=== PATIENT | female | born 1945 | race Caucasian/White ===

== ENCOUNTER 2021-02-15 10:26 | Outpatient (REF) | payer MEDICARE, SELFPAY ==
[2021-02-15 11:45] LABS: Alanine Aminotransferase 22 U/L (0-31); Albumin Level 4.2 g/dL (3.5-5.0); Alkaline Phosphatase 71 U/L (39-117); Aspartate Amino Transferase 17 U/L (5-31); Bilirubin Direct 0.2 mg/dL (0.0-0.5); Bilirubin Total 0.5 mg/dL (0.0-1.0); Cholesterol 222 mg/dL; HDL Cholesterol 78 mg/dL; LDL Cholesterol Calculated 122 mg/dl; Total Protein 6.5 g/dL (6.5-8.0); Triglycerides 112 mg/dL
[2021-02-15 12:24] LABS: Reflex LDLD? No
== END 2021-02-15 10:27 | disposition home or self-care (01) ==
LOC: HO.LNP 10:26
PROVIDERS: Visit Provider Internal Medicine
DX: E78.00 Pure hypercholesterolemia, unspecified (principal); E55.9 Vitamin D deficiency, unspecified
CPT/HCPCS: 80061; 80076

== ENCOUNTER 2021-02-25 10:21 | Outpatient (REF) | payer MEDICARE, SELFPAY ==
[2021-02-25 10:25] LABS: MANUAL DIFF FLAG NO
[2021-02-25 10:39] LABS: Basophils Percent Auto 0.7 % (0-2); Eosinophils Absolute Auto 0.3 X10*3/uL (0.0-0.4); Eosinophils Percent Auto 5.9 % (0-4); Hematocrit 39.6 % (37-47); Hemoglobin 12.9 g/dl (12.0-16.0); Imm Gran Abs Auto 0.01 X10*3/uL (0.00-0.03); Imm Gran Pct Auto 0.2 % (0.0-0.4); Lymphocytes Absolute Auto 1.7 X10*3/uL (1.2-4.9); Lymphocytes Percent Auto 28.7 % (20-40); Mean Corpuscular HGB Conc 32.6 g/dl (31.0-35.0); Mean Corpuscular Hemoglobin 29.7 pg (27.0-33.0); Mean Platelet Volume 9.5 fL (9.4-12.3); Monocytes Absolute Auto 0.5 X10*3/uL (0.1-1.2); Monocytes Percent Auto 8.6 % (2-11); Neutrophils Absolute Auto 3.3 X10*3/uL (2.0-8.3); Neutrophils Percent Auto 55.9 % (45-73); Platelet Count 221 X10*3/uL (160-400); Red Blood Count 4.35 X10*6/uL (4.20-5.50); Red Cell Distribution Width 12.7 % (11.0-16.0); White Blood Count 5.8 X10*3/uL (4.8-10.8)
[2021-02-25 10:52] LABS: Glucose Urine UA NEG (NEG); Leukocyte Esterase Urine 1+ (NEG); Nitrite Urine NEG (NEG); Specific Gravity - Urine >= 1.030 (1.005-1.025); Urine Blood NEG (NEG); Urine Ketones NEG (NEG); Urine Protein TRACE MG/DL (NEG-TRACE)
[2021-02-25 10:54] LABS: Appearance Urine HAZY; Color Urine YELLOW
[2021-02-25 11:23] LABS: Bacteria Urine 3+ /LPF; Calcium Carbonate Crystals Ur 1+ /LPF; RBC Urine 0-2 /HPF (0); Squamous Epithelial Cell Urine 1+ /LPF
[2021-02-25 11:49] LABS: Alanine Aminotransferase 15 U/L (0-31); Alkaline Phosphatase 71 U/L (39-117); Anion Gap 13 (12-20); Aspartate Amino Transferase 14 U/L (5-31); Bilirubin Total 0.5 mg/dL (0.0-1.0); Blood Urea Nitrogen 18 mg/dL (9-16); Calcium 8.6 mg/dL (8.4-10.2); Carbon Dioxide 24 mmol/L (22-29); Chloride 109 mmol/L (96-108); Estimated Glomerular Filt Rate > 60; Glucose Random 97 mg/dL (60-115); Sodium 142 mmol/L (135-145); Total Protein 6.1 g/dL (6.5-8.0)
[2021-03-02 12:42] LABS: VITAMIN D (1,25 OH) D3 73 pg/mL; Vit D (1,25-Dihydroxy) Total 73 pg/mL (18-72); Vitamin D (1,25 OH) D2 <8 pg/mL
== END 2021-02-25 10:22 | disposition home or self-care (01) ==
LOC: HO.LNP 10:21
PROVIDERS: Visit Provider Internal Medicine
DX: E78.00 Pure hypercholesterolemia, unspecified (principal); E55.9 Vitamin D deficiency, unspecified; M35.2 Behcet's disease
CPT/HCPCS: 80053; 81001; 82652; 85025

== ENCOUNTER 2021-05-05 15:11 | Outpatient (REF) | payer MEDICARE, SELFPAY ==
--- NOTE | ~2021-05-05 | US_ITS ---
EXAMINATION: US VENOUS ULTRASOUND WITH DOPPLER LOWER EXTREMITY, RIGHT CLINICAL INFORMATION: Swelling and pain COMPARISON: None TECHNIQUE: Ultrasound of the deep veins is performed from the hip to the calf with compression sonography and color and pulse Doppler assessment. Spectral analysis with color-flow imaging is performed. FINDINGS: There is normal venous compression and respiratory variation and augmented flow. The visualized common femoral vein, superficial femoral vein, profunda femoral vein, popliteal vein, and the trifurcation region shows no evidence of deep venous thrombosis. There is no significant popliteal fossa cyst. If the patient's symptoms persist, followup ultrasound in 5 days 7 days might be of value to exclude proximal propagation from a non-visualized calf vein. US/US venous duplex LE RT IMPRESSION: No DVT demonstrated in the right lower extremity.
== END 2021-05-05 15:12 | disposition home or self-care (01) ==
LOC: HO.HMGCX 15:11
PROVIDERS: PCP Internal Medicine; Visit Provider Internal Medicine
DX: R60.0 Localized edema (principal)
CPT/HCPCS: 93971

== ENCOUNTER 2022-03-09 10:38 | Outpatient (REF) | payer MEDICARE, SELFPAY ==
[2022-03-09 10:43] LABS: MANUAL DIFF FLAG NO
[2022-03-09 10:56] LABS: Appearance Urine CLEAR; Color Urine YELLOW; Glucose Urine UA NEG (NEG); Leukocyte Esterase Urine TRACE (NEG); Nitrite Urine NEG (NEG); PH 5.5 (5.0-8.0); Specific Gravity - Urine >= 1.030 (1.005-1.025); Urine Blood NEG (NEG); Urine Ketones NEG (NEG); Urine Protein NEG (NEG-TRACE)
[2022-03-09 10:57] LABS: Basophils Absolute Auto 0.1 X10*3/uL (0.0-0.2); Basophils Percent Auto 0.9 % (0-2); Eosinophils Absolute Auto 0.2 X10*3/uL (0.0-0.4); Eosinophils Percent Auto 2.6 % (0-4); Hemoglobin 13.4 g/dl (12.0-16.0); Imm Gran Abs Auto 0.02 X10*3/uL (0.00-0.03); Imm Gran Pct Auto 0.3 % (0.0-0.4); Lymphocytes Absolute Auto 1.8 X10*3/uL (1.2-4.9); Mean Corpuscular HGB Conc 32.7 g/dl (31.0-35.0); Mean Corpuscular Volume 88.7 fL (80.0-98.0); Mean Platelet Volume 9.2 fL (9.4-12.3); Monocytes Absolute Auto 0.5 X10*3/uL (0.1-1.2); Monocytes Percent Auto 9.4 % (2-11); Neutrophils Absolute Auto 3.2 x10*3/uL (2.0-8.3); Neutrophils Percent Auto 54.8 % (45-73); Platelet Count 337 X10*3/uL (160-400); Red Blood Count 4.62 X10*6/uL (4.20-5.50); Red Cell Distribution Width 12.2 % (11.0-16.0); White Blood Count 5.8 X10*3/uL (4.8-10.8)
[2022-03-09 11:18] LABS: Bacteria Urine TRACE /LPF; RBC Urine 0 /HPF (0); Squamous Epithelial Cell Urine TRACE /LPF
[2022-03-09 11:23] LABS: Alanine Aminotransferase 14 U/L (0-31); Albumin Level 4.1 g/dL (3.5-5.0); Alkaline Phosphatase 71 U/L (39-117); Anion Gap 13 (12-20); Aspartate Amino Transferase 14 U/L (5-31); Bilirubin Total 0.4 mg/dL (0.0-1.0); Blood Urea Nitrogen 19 mg/dL (9-16); Calcium 9.1 mg/dL (8.4-10.2); Carbon Dioxide 25 mmol/L (22-29); Chloride 109 mmol/L (96-108); Cholesterol 241 mg/dL; Estimated Glomerular Filt Rate > 60; Glucose Fasting 107 mg/dL (60-99); HDL Cholesterol 67 mg/dL; LDL Cholesterol Calculated 148 mg/dl; Potassium 4.1 mmol/L (3.3-5.1); Sodium 143 mmol/L (135-145); Total Protein 6.3 g/dL (6.5-8.0); Triglycerides 133 mg/dL
[2022-03-09 11:46] LABS: Vitamin D 25-OH Total 38.6 ng/mL (>30)
== END 2022-03-09 10:39 | disposition home or self-care (01) ==
LOC: HO.LNP 10:38
PROVIDERS: Visit Provider Internal Medicine
DX: E78.00 Pure hypercholesterolemia, unspecified (principal); E55.9 Vitamin D deficiency, unspecified
CPT/HCPCS: 80053; 80061; 81001; 82306; 85025; 87086

== ENCOUNTER 2022-07-27 14:13 | Outpatient (REF) | payer MEDICARE, SELFPAY ==
--- NOTE | ~2022-07-27 | MR_ITS ---
MRI OF THE BRAIN WITH AND WITHOUT IV CONTRAST INDICATION: Migraine. COMPARISON: None available. TECHNIQUE: Multiplanar multisequence MR imaging of the brain was obtained without and following the administration of 8 mL of Gadavist without complication. FINDINGS: There is no pathologic intracranial enhancement. On the axial postcontrast series, there is vascular pulsation artifact within the brainstem which is not confirmed on the remaining series. There is global cerebral volume loss and there is mild chronic microangiopathy. Cavum septum pellucidum at vergae. There is no hydrocephalus, extra-axial surface collection, or herniation. The major flow voids at the skull base are preserved. There is no acute infarct on diffusion-weighted imaging. There is no intracranial hemorrhage on the gradient recalled echo acquisition. The midline structures are normal. The cerebellar tonsils are normally positioned. The cerebellum and brainstem are normal. The craniocervical junction is normal. Osseous marrow signal intensity is homogenous. The visualized soft tissues are unremarkable. MR/MR head/brain wo/w con IMPRESSION: - No acute intracranial findings. No pathologic enhancement intracranially accounting for artifact. - There is global cerebral volume loss and there is mild chronic microangiopathy.
== END 2022-07-27 14:14 | disposition home or self-care (01) ==
LOC: HO.MRI 14:13
PROVIDERS: Visit Provider Internal Medicine
DX: G43.009 Migraine without aura, not intractable, without status migrainosus (principal)
CPT/HCPCS: 70553; A9585

== ENCOUNTER 2022-09-25 07:58 | Day surgery (SDC) | payer MEDICARE, SELFPAY ==
[2022-09-19 16:18] VITALS: BMI 28.3
--- NOTE | 2022-09-22 08:13 | MHC.SHP ---
Pre-Procedural Eval Section A Date of Service: 09/22/22 The patient is an INPATIENT: No Changes since office visit: No Cold of Flu in the past 2 weeks, No New Medical Problems, No Changes in Medication and No Patient answered all questions The History & Physical has been completed within 30 days and I have reviewed it.: Yes Section B Chief Complaint: Age-related nuclear cataract, right eye Allergies: Allergies Allergy/AdvReac Type Severity Reaction Status Date / Time prednisone Allergy Unknown chest pain Verified 09/19/22 15:31 Plan Diagnosis/Plan: Unchanged I have reviewed the history and physical and performed a pertinent physical examination on my patient. No changes have occurred unless specified. Time Spent With Patient Time: Total time managing care of this patient today ____ minutes.
[2022-09-25 08:43] VITALS: BP 167/83; PULSE 77; RESP 18; TEMP 36.6; O2SAT 98
[2022-09-25] MEDS: Cyclopentolate 1 % Ophth Sol 2 ML DRPBTL 1 DROP EYE-RIGHT ×3 (08:56→08:57)
[2022-09-25] MEDS: Tropicamide 1 % Ophth Sol 3 ML BTL 1 DROP EYE-RIGHT ×3 (08:56→08:57)
[2022-09-25] MEDS: Tetracaine HCl/PF 0.5% Oph Sol 4 ML DROPS 1 DROP EYE-RIGHT (08:56)
[2022-09-25] MEDS: Phenylephrine HCL 2.5% Oph SoL 2 ML BOTTLE 1 DROP EYE-RIGHT ×3 (08:57→08:58)
[2022-09-25] MEDS: Ketorolac Tromethamine 0.5% Op 5 ML DROPS 1 DROP EYE-RIGHT ×3 (08:57)
--- NOTE | 2022-09-25 09:55 | HO.PNOPHT ---
Ophthalmology Procedure Procedure Date of Service: 09/25/22 Ophthalmology Viscoelastic: Healaudrey Duet Dual Pack Pro Ophthalmology Lenses: TECNIS [id number] (21.5) Procedure Notes: PREOPERATIVE DIAGNOSIS: Decreased visual acuity right eye secondary to cataract POSTOPERATIVE DIAGNOSIS: Same PROCEDURE: Right cataract extraction with intraocular lens insertion SURGEON: Jean Carlos Llamas M.D. ANESTHESIA: Topical/MAC ESTIMATED BLOOD LOSS: None COMPLICATIONS: None After obtaining informed consent, the patient was brought to the operating room suite and placed in the supine position. After adequate sedation per anesthesia, topical drops of Tetracaine were given to the right eye. The eye was then prepped and draped in the usual sterile fashion. The operating room microscope was then positioned over the operative eye and a lid speculum placed. A paracentesis was created. Viscoelastic was then instilled into the anterior chamber. A three plane incision was then created temporally, utilizing a 2.85 mm keratome. Capsulotomy forceps were then utilized to create a circular tear capsulotomy. Hydrodissection and hydrodelineation were carried out until adequate mobilization of the nucleus occurred. Phacoemulsification was then utilized to remove the dense central nucleus followed by removal of the cortical material utilizing the automated aspiration irrigation unit. Viscoelastic was instilled into the posterior capsular bag followed by placement of a posterior chamber intraocular lens without difficulty. The residual Viscoelastic was then removed utilizing the automated IA machine. The wound was checked and found to be watertight. The patient tolerated the procedure well and the lid speculum was removed. Intracameral injection of Vigamox 0.1 mL followed by a subtenon injection of Kenalog-40 0.2 mL were administered. The patient will be seen in the a.m.
[2022-09-25 10:16] VITALS: BP 167/73; PULSE 82; RESP 12; TEMP 37.1; O2SAT 99
[2022-09-25 10:21] VITALS: BP 176/73; PULSE 76; RESP 14; TEMP 37.1; O2SAT 96
== END 2022-09-25 10:31 | disposition home or self-care (01) ==
PROVIDERS: PCP Internal Medicine; Visit Provider Ophthalmology
PROC: (CPT 66985; principal; 2022-09-25 10:00)
DX: H25.11 Age-related nuclear cataract, right eye (principal); H54.7 Unspecified visual loss; E78.00 Pure hypercholesterolemia, unspecified; Z88.8 Allergy status to other drugs, medicaments and biological substances; Z79.899 Other long term (current) drug therapy
CPT/HCPCS: 66984; J3301; V2632

== ENCOUNTER 2022-10-09 07:54 | Day surgery (SDC) | payer MEDICARE, SELFPAY ==
[2022-09-19 16:14] VITALS: BMI 28.3
--- NOTE | 2022-10-06 10:11 | MHC.SHP ---
Pre-Procedural Eval Section A Date of Service: 10/06/22 The patient is an INPATIENT: No Changes since office visit: No Cold of Flu in the past 2 weeks, No New Medical Problems, No Changes in Medication and No Patient answered all questions The History & Physical has been completed within 30 days and I have reviewed it.: Yes Section B Chief Complaint: Age-related nuclear cataract, left eye Allergies: Allergies Allergy/AdvReac Type Severity Reaction Status Date / Time prednisone Allergy Unknown chest pain Verified 09/19/22 15:31 Plan Diagnosis/Plan: Unchanged I have reviewed the history and physical and performed a pertinent physical examination on my patient. No changes have occurred unless specified. Time Spent With Patient Time: Total time managing care of this patient today ____ minutes.
[2022-10-09 08:31] VITALS: BP 151/76; PULSE 79; RESP 15; TEMP 36.8; O2SAT 95
[2022-10-09] MEDS: Tetracaine HCl/PF 0.5% Oph Sol 4 ML DROPS 1 DROP EYE-LEFT (08:35)
[2022-10-09] MEDS: Cyclopentolate 1 % Ophth Sol 2 ML DRPBTL 1 DROP EYE-LEFT ×3 (08:37→08:49)
[2022-10-09] MEDS: Tropicamide 1 % Ophth Sol 3 ML BTL 1 DROP EYE-LEFT ×3 (08:39→08:51)
[2022-10-09] MEDS: Ketorolac Tromethamine 0.5% Op 5 ML DROPS 1 DROP EYE-LEFT ×3 (08:40→08:52)
[2022-10-09] MEDS: Phenylephrine HCL 2.5% Oph SoL 2 ML BOTTLE 1 DROP EYE-LEFT ×3 (08:42→08:54)
[2022-10-09] MEDS: Lactated Ringers 500 ML 20 ML IVCONT (08:49)
--- NOTE | 2022-10-09 09:06 | HO.ANESPROP2 ---
[facility] Past Medical History Medical History History of high cholesterol Hx of migraines PONV (postoperative nausea and vomiting) Surgical History Surgical History Hx of colonoscopy Hx of dilation and curettage History of Problems with Anesthesia: No Social History Social History Are you a primary health care sanitary technician to a significant other at home: No Do you presently have visiting nurse or other home services: No Patient Tobacco Use Status: Never used Tobacco Second Hand Smoke Exposure: No Use of substances other than those prescribed or required for medical reasons: No Have you been hit, kicked, punched, or otherwise hurt by someone within the past year? If so, by whom?: No Are you DNR?: No Advance Directives: No Advance Directives Information Provided: Yes Advance Directives on File: No Recently lost weight without trying: No Eating poorly because of decreased appetite: No Nutrition Risks: No Nutritional Risk Meds Allergies Allergy/AdvReac Type Severity Reaction Status Date / Time prednisone Allergy Unknown chest pain Verified 10/09/22 08:31 Active Medications: Current Medications Lactated Ringer's (Lr) 500 mls @ 20 mls/hr IVCONT .Q24H NELLIE Last Admin: 10/09/22 08:49 Dose: 20 mls/hr Povidone Iodine (Povidone Iodine 5 % Ophth Soln 30 Ml Bottle) 1 appl EYE-LEFT PREOP PRN PRN Reason: Pre-Op Surgical Implant Prophy Home Medications Medication Instructions Recorded Confirmed Last Taken Type cholecalciferol (vitamin D3) 10 10 mcg PO DAILY 09/19/22 09/19/22 Unknown History mcg (400 unit) chewable tablet (Vitamin D3) Exam Exam Date and Time: October 09, 2022905 Height,Weight and Vital Signs: Height 5 ft 5 in Weight 77.111 kg Last Vital Signs Temp 98.3 F 10/09/22 08:31 Pulse 79 10/09/22 08:31 Resp 15 10/09/22 08:31 BP 151/76 H 10/09/22 08:31 Pulse Ox 95 10/09/22 08:31 O2 Del Method 10/09/22 08:31 Airway Mallampati Class: II TM Dist: >3cm Neck ROM: Full Partial: Upper and Lower Loose/Missing/Broken Teeth: Yes and Lower Heart: RRR Lungs: CTA Assessment and Plan Assessment Anesthesia Assessment: Anesthesia Plan Discussed and Chart Reviewed Final Anesthetic Review History of Problems with Anesthesia: No NPO: Yes ASA Class: II Final Preanesthetic Review: Meds/Allgs Chart Reviewed, Consent Obtained/Reviewed and Anes Risks/Benef Reviewed Patient Risk: Low Procedure Risk: Low Anesthetic Plan Anesthetic Plan: MAC: Disposition: Standard PACU
--- NOTE | 2022-10-09 09:41 | HO.PNOPHT ---
Ophthalmology Procedure Procedure Date of Service: 10/09/22 Ophthalmology Viscoelastic: Healaudrey Cherryt Dual Pack Pro Ophthalmology Lenses: TECMAAYA [id number] (22) Procedure Notes: PREOPERATIVE DIAGNOSIS: Decreased visual acuity left eye secondary to cataract POSTOPERATIVE DIAGNOSIS: Same PROCEDURE: Left cataract extraction with intraocular lens insertion SURGEON: Jean Carlos Llamas M.D. ANESTHESIA: Topical/MAC ESTIMATED BLOOD LOSS: None COMPLICATIONS: None After obtaining informed consent, the patient was brought to the operation room suite and placed in the supine position. After adequate sedation per anesthesia, topical drops of Tetracaine were given to the left eye. The eye was then prepped and draped in the usual sterile fashion. The operating room microscope was then positioned over the operative eye and a lid speculum placed. A paracentesis was created. Viscoelastic was then instilled into the anterior chamber. A three plane incision was then created temporally, utilizing a 2.85 mm keratome. Capsulotomy forceps were then utilized to create a circular tear capsulotomy. Hydrodissection and hydrodelineation were carried out until adequate mobilization of the nucleus occurred. Phacoemulsification was then utilized to remove the dense central nucleus followed by removal of the cortical material utilizing the automated aspiration irrigation unit. Viscoat elastic was instilled into the posterior capsular bag followed by placement of a posterior chamber intraocular lens without difficulty. The residual Viscoat elastic was then removed utilizing the automated IA machine. The wound was check and found to be watertight. The patient tolerated the procedure well and the lid speculum was removed. Intracameral injection of Vigamox 0.1 mL followed by a subtenon injection of Kenalog-40 0.2 mL were administered. The patient will be seen in the a.m.
[2022-10-09 10:10] VITALS: BP 154/77; PULSE 68; RESP 49; TEMP 36.4; O2SAT 97
== END 2022-10-09 10:15 | disposition home or self-care (01) ==
PROVIDERS: PCP Internal Medicine; Visit Provider Ophthalmology
PROC: (CPT 66985; principal; 2022-10-09 10:00)
DX: H25.12 Age-related nuclear cataract, left eye (principal); H54.7 Unspecified visual loss; E78.00 Pure hypercholesterolemia, unspecified; Z79.899 Other long term (current) drug therapy; Z88.8 Allergy status to other drugs, medicaments and biological substances
CPT/HCPCS: 66984; J3301; V2632

== ENCOUNTER 2023-08-28 10:49 | Outpatient (REF) | payer MEDICARE, SELFPAY ==
[2023-08-28 10:52] LABS: MANUAL DIFF FLAG NO
[2023-08-28 11:42] LABS: Basophils Percent Auto 0.8 % (0-2); Eosinophils Absolute Auto 0.3 X10*3/uL (0.0-0.4); Eosinophils Percent Auto 5.3 % (0-4); Hematocrit 39.9 % (37.0-47.0); Hemoglobin 13.3 g/dl (12.0-16.0); Imm Gran Abs Auto 0.01 X10*3/uL (0.00-0.03); Imm Gran Pct Auto 0.2 % (0.0-0.4); Lymphocytes Absolute Auto 1.6 X10*3/uL (1.2-4.9); Lymphocytes Percent Auto 30.5 % (20-40); Mean Corpuscular HGB Conc 33.3 g/dl (31.0-35.0); Mean Corpuscular Hemoglobin 29.6 pg (27.0-33.0); Mean Corpuscular Volume 88.9 fL (80.0-98.0); Mean Platelet Volume 9.3 fL (9.4-12.3); Monocytes Absolute Auto 0.4 X10*3/uL (0.1-1.2); Monocytes Percent Auto 8.6 % (2-11); Neutrophils Absolute Auto 2.8 x10*3/uL (2.0-8.3); Neutrophils Percent Auto 54.6 % (45-73); Platelet Count 260 X10*3/uL (160-400); Red Blood Count 4.49 X10*6/uL (4.20-5.50); Red Cell Distribution Width 12.4 % (11.0-16.0); White Blood Count 5.1 X10*3/uL (4.8-10.8)
[2023-08-28 11:55] LABS: Appearance Urine Turbid; Color Urine Dark Yellow; Glucose Urine UA Negative (Negative); Leukocyte Esterase Urine Small (1+) (Negative); Nitrite Urine Negative (Negative); PH 5.5 (5.0-9.0); Specific Gravity - Urine 1.025 (1.005-1.025); UMIC TRIGGER UACC YES; Urine Blood Negative (Negative); Urine Ketones Trace mg/dL (Negative); Urine Protein Trace mg/dL (Neg-Trace)
[2023-08-28 12:00] LABS: Bacteria Urine None Seen (None Seen); Hyaline Casts Urine 0-2 /LPF (0-2); RBC Urine 0-2 /HPF (0-2); Squamous Epithelial Cell Urine >20 /HPF (0-2); UACC Culture Trigger YES
[2023-08-28 12:02] LABS: Alanine Aminotransferase 15 U/L (0-31); Albumin Level 4.1 g/dL (3.5-5.0); Alkaline Phosphatase 68 U/L (39-117); Anion Gap 16 (12-20); Aspartate Amino Transferase 17 U/L (5-31); Bilirubin Total 0.4 mg/dL (0.0-1.0); Blood Urea Nitrogen 20 mg/dL (9-16); Calcium 9.4 mg/dL (8.4-10.2); Carbon Dioxide 24 mmol/L (22-29); Chloride 106 mmol/L (96-108); Cholesterol 244 mg/dL (<200); Estimated Glomerular Filt Rate > 60; Glucose Fasting 107 mg/dL (60-99); HDL Cholesterol 77 mg/dL (>40); LDL Cholesterol Calculated 148 mg/dL (<100); Potassium 4.1 mmol/L (3.3-5.1); Sodium 142 mmol/L (135-145); Total Protein 6.6 g/dL (6.5-8.0); Triglycerides 96 mg/dL (<150)
== END 2023-08-28 10:50 | disposition home or self-care (01) ==
LOC: HO.LNP 10:49
PROVIDERS: Visit Provider Internal Medicine
DX: E78.00 Pure hypercholesterolemia, unspecified (principal)
CPT/HCPCS: 80053; 80061; 81001; 85025; 87086

== ENCOUNTER 2024-02-25 11:57 | Outpatient (REF) | payer MEDICARE, SELFPAY ==
[2024-02-25 12:46] VITALS: BP 134/66; PULSE 80; RESP 17; TEMP 36.4; O2SAT 96
[2024-02-25 13:39] VITALS: BMI 28.1
== END 2024-02-25 11:58 | disposition home or self-care (01) ==
LOC: HO.MS 11:57
PROVIDERS: PCP Internal Medicine; Visit Provider Ophthalmology
PROC: (CPT 66821; principal; 2024-02-25 14:30)
DX: H26.491 Other secondary cataract, right eye (principal)
CPT/HCPCS: 66821

== ENCOUNTER 2024-06-23 10:00 | Outpatient (RCR) | payer MEDICARE, SELFPAY | END 2024-07-11 10:53 | disposition home or self-care (01) | LOC: HO.PT 10:00 | PROVIDERS: PCP Internal Medicine; Visit Provider Physician Assistant | DX: M54.16 Radiculopathy, lumbar region (principal) | CPT/HCPCS: 97110; 97112; 97161 ==

== ENCOUNTER 2024-07-23 10:00 | Outpatient (RCR) | payer MEDICARE, SELFPAY | END 2024-08-22 09:59 | disposition home or self-care (01) | LOC: HO.PT 10:00 | PROVIDERS: PCP Internal Medicine; Visit Provider Internal Medicine | DX: R42 Dizziness and giddiness (principal) | CPT/HCPCS: 97112; 97161; 97535 ==

== ENCOUNTER 2024-09-30 10:54 | Outpatient (REF) | payer MEDICARE, SELFPAY ==
[2024-09-30 10:57] LABS: MANUAL DIFF FLAG NO
[2024-09-30 11:04] LABS: Basophils Absolute Auto 0.1 X10*3/uL (0.0-0.2); Basophils Percent Auto 1.1 % (0-2); Eosinophils Absolute Auto 0.3 X10*3/uL (0.0-0.4); Eosinophils Percent Auto 5.9 % (0-4); Hematocrit 41.4 % (37.0-47.0); Hemoglobin 13.7 g/dl (12.0-16.0); Imm Gran Abs Auto 0.01 X10*3/uL (0.00-0.03); Imm Gran Pct Auto 0.2 % (0.0-0.4); Lymphocytes Absolute Auto 1.6 X10*3/uL (1.2-4.9); Lymphocytes Percent Auto 32.7 % (20-40); Mean Corpuscular HGB Conc 33.1 g/dl (31.0-35.0); Mean Corpuscular Hemoglobin 29.7 pg (27.0-33.0); Mean Corpuscular Volume 89.6 fL (80.0-98.0); Mean Platelet Volume 9.1 fL (9.4-12.3); Monocytes Absolute Auto 0.5 X10*3/uL (0.1-1.2); Monocytes Percent Auto 10.8 % (2-11); Neutrophils Absolute Auto 2.3 x10*3/uL (2.0-8.3); Neutrophils Percent Auto 49.3 % (45-73); Platelet Count 253 X10*3/uL (160-400); Red Blood Count 4.62 X10*6/uL (4.20-5.50); Red Cell Distribution Width 12.6 % (11.0-16.0); White Blood Count 4.7 X10*3/uL (4.8-10.8)
[2024-09-30 11:16] LABS: Appearance Urine Hazy; Color Urine Yellow; Glucose Urine UA Negative (Negative); Leukocyte Esterase Urine Trace (Negative); Nitrite Urine Negative (Negative); PH 5.5 (5.0-9.0); Specific Gravity - Urine >= 1.030 (1.005-1.025); UMIC TRIGGER UACC YES; Urine Blood Negative (Negative); Urine Ketones Negative (Negative); Urine Protein Trace mg/dL (Neg-Trace)
[2024-09-30 11:23] LABS: Bacteria Urine Trace (None Seen); Hyaline Casts Urine 0-2 /LPF (0-2); RBC Urine 0-2 /HPF (0-2); WBC Urine 0-5 /HPF (0-5)
[2024-09-30 11:26] LABS: Alanine Aminotransferase 18 U/L (0-31); Albumin Level 4.1 g/dL (3.5-5.0); Alkaline Phosphatase 67 U/L (39-117); Anion Gap 12 (12-20); Aspartate Amino Transferase 21 U/L (5-31); Bilirubin Total 0.5 mg/dL (0.0-1.0); Blood Urea Nitrogen 25 mg/dL (9-16); Calcium 8.9 mg/dL (8.4-10.2); Carbon Dioxide 27 mmol/L (22-29); Chloride 108 mmol/L (96-108); Cholesterol 255 mg/dL (<200); Estimated Glomerular Filt Rate > 60; Glucose Fasting 101 mg/dL (60-99); HDL Cholesterol 81 mg/dL (>40); LDL Cholesterol Calculated 158 mg/dL (<100); Potassium 4.2 mmol/L (3.3-5.1); Sodium 143 mmol/L (135-145); Total Protein 6.5 g/dL (6.5-8.0); Triglycerides 80 mg/dL (<150)
[2024-09-30 11:45] LABS: Vitamin D 25-OH Total 51.5 ng/mL (>30)
== END 2024-09-30 10:55 | disposition home or self-care (01) ==
LOC: HO.LNP 10:54
PROVIDERS: Visit Provider Internal Medicine
DX: E78.00 Pure hypercholesterolemia, unspecified (principal); E55.9 Vitamin D deficiency, unspecified
CPT/HCPCS: 80053; 80061; 81001; 82306; 85025

== ENCOUNTER 2025-01-08 10:12 | Outpatient (REF) | payer MEDICARE, SELFPAY ==
[2025-01-08 11:21] LABS: Blood Urea Nitrogen 19 mg/dL (9-16); Estimated Glomerular Filt Rate > 60
--- OUTSIDE RECORDS SUMMARY | 2025-01-08 11:44 | XMS_ITS ---
Author Organization Denis Garcia MD Address [address] [place] [phone] Care Team Providers Care Broadband Engineer Name Role Phone Denis Garcia Primary Care Provider [phone] Results Component Value Reference Range Notes Blood Urea Nitrogen (Not yet reviewed by provider) Interpretation: Performing Lab:[facility], [address] [place] [phone] Notes/Report: Blood Urea Nitrogen 19 9-16 mg/dL Creatinine (Not yet reviewed by provider) Interpretation: Performing Lab:[facility], [address] [place] [phone] Notes/Report: Creatinine 0.79 0.5-1.4 mg/dL Estimated Glomerular Filt Rate > 60 Chronic Kidney Disease: Estimated GFR < 60 mL/min/1.73m2 Severe Kidney Disease: Estimated GFR < 15 mL/min/1.73m2 REASON FOR VISIT bun creatine Encounters Encounter Location Date Provider Diagnosis Denis Garcia MD [address] [place] [phone] 01/08/2025 Denis Garcia Hypercholesterolemia E78.00 Assessments Encounter Date Diagnosis (ICD Code) Assessment Notes Treatment Notes Treatment Clinical Notes Section Notes 01/08/2025 Hypercholesterolemia (ICD-10 - E78.00) Plan Of Treatment Pending Test Test Name Order Date Blood Urea Nitrogen 01/08/2025 Creatinine 01/08/2025 Next Appt Details Provider Name:Denis river, 10/02/2025 07:30:00 AM, [address], [address], [place], [phone], Provider Name:Denis Nugent perico, 10/09/2025 09:30:00 AM, [address], [address], [place], [phone], Progress Notes * Asia SILVADOB: (79 yo F)Acc No.[id number]:01/08/2025 Progress Note Patient:?Kenya SILVA Provider:?Denis Garcia MD :[id number]???Age:79 Y???Sex:Female D ate:01/08/2025 Address:[address] [place], [place] [id number] Subjective: * Chief Complaints: * ???1. Bun creatine. * Medical History:? Objective: * Vitals:? Assessment: * Assessment: 1.?Hypercholesterolemia - E7 8.00 (Primary)??? Plan: * Treatment: * Procedure Codes:?15561 VENIP UNCT, ROUTINE* * * The named appointment provid er may or may not be the originator of this progress note, and it is not deemed complete until electronically signed by the appointment provider. Sign off status: Pending * Provider:?Denis Garcia MD Date:?0 01/08/2025 Generated for Joe montano/Adrien/eTconnorsmitting on:?01/08/2025 11:44 AM EDT
--- OUTSIDE RECORDS SUMMARY | 2025-01-08 11:44 | XMS_ITS | Patient Health Record ---
Author Organization Denis Garcia MD Address [address] [place], [place] [id number] Care Team Providers Care Fishery Biologist Name Role Phone Denis Garcia Primary Care Provider [phone] Allergies Allergen (clinical drug ingredient) Drug/Non Drug Allergy documented on EMR Reaction Allergy Type Onset Date Status PredniSONE face swelling palpitations Drug Allergy Active Results Component Value Reference Range Notes Lakisha Shields Reviewed date:09/30/2024 05:05:45 PM Interpretation: Performing Lab:[address] [phone] Notes/Report: Lakisha Shields See Note Specimen held untested for 24 hours; Call to request Chemistry testing. Complete Blood Count Auto Di ff Reviewed date:09/30/2024 05:15:25 PM Interpretation: Performing Lab:[facility], [address] [place] [phone] Notes/Report: White Blood Count 4.7 4.8-10.8 X10*3/uL Red Blood Count 4.62 4.20-5.50 X10*6/uL Hemoglobin 13.7 12.0-16.0 g/dl Hematocrit 41.4 37.0-47.0 % Mean Corpuscular Volume 89.6 80.0-98.0 fL Mean Corpuscular Hemoglobin 29.7 27.0-33.0 pg Mean Corpuscular HGB Conc 33.1 31.0-35.0 g/dl Red Cell Distribution Width 12.6 11.0-16.0 % Platelet Count 253 160-400 X10*3/uL Mean Platelet Volume 9.1 9.4-12.3 fL Neutrophils Percent Auto 49.3 45-73 % Imm Gran Pct Auto 0.2 0.0-0.4 % Lymphocytes Percent Auto 32.7 20-40 % Monocytes Percent Auto 10.8 2-11 % Eosinophils Percent Auto 5.9 0-4 % Basophils Percent Auto 1.1 0-2 % NRBC Pct Auto 0.0 0.0-0.2 /100WBC Neutrophils Absolute Auto 2.3 2.0-8.3 x10*3/u L Imm Gran Abs Auto 0.01 0.00-0.03 X10*3/uL Lymphocytes Absolute Auto 1.6 1.2-4.9 X10*3/u L Monocytes Absolute Auto 0.5 0.1-1.2 X10*3/uL Eosinophils Absolute Auto 0.3 0.0-0.4 X10*3/u L Basophils Absolute Auto 0.1 0.0-0.2 X10*3/uL NRBC Abs Auto 0.000 0.0-0.012 X10*3/uL Comprehensive [place]. Panel Fa st Reviewed date:09/30/2024 05:18:52 PM Interpretation: Performing Lab:[facility], [address] [place] [phone] Notes/Report: Sodium 143 135-145 mmol/L Potassium 4.2 3.3-5.1 mmol/L Chloride 108 96-108 mmol/L Carbon Dioxide 27 22-29 mmol/L Anion Gap 12 12-20 Blood Urea Nitrogen 25 9-16 mg/dL Creatinine 0.81 0.5-1.4 mg/dL Estimated Glomerular Filt Rate > 60 Chronic Kidney Disease: Estimated GFR < 60 mL/min/1.73m2 Severe Kidney Disease: Estimated GFR < 15 mL/min/1.73m2 Glucose Fasting 101 60-99 mg/dL A fasting glucose from 100-125 mg/dl is considered impaired (pre-diabetes). Calcium 8.9 8.4-10.2 mg/dL Bilirubin Total 0.5 0.0-1.0 mg/dL Aspartate Amino Transferase 21 5-31 U/L Alanine Aminotransferase 18 0-31 U/L Total Protein 6.5 6.5-8.0 g/dL Albumin Level 4.1 3.5-5.0 g/dL Alkaline Phosphatase 67 39-117 U/L Lipid Panel Reviewed date:09/30/2024 05:05:01 PM Interpretation: Performing Lab:[address] [phone] Notes/Report: Triglycerides 80 <150 mg/dL Desirable Triglyceride: less than 150 mg/dL Borderline High Triglyceride 150-199 mg/dL High Triglyceride: 200-499 mg/dL Very High Triglyceride: greater than or equal to 5OO mg/dL Cholesterol 255 <200 mg/dL Desirable Cholesterol: less than 200 mg/dL Borderline High Cholesterol: 200-239 mg/dL High Cholesterol: greater than 239 mg/dL LDL Cholesterol Calculated 158 <100 mg/dL Desirable LDL: less than 100 mg/dL Near Optimal/Above Optimal LDL: 110-129 mg/dL Borderline High LDL: 130-159 mg/dL High LDL: 160-189 mg/dL Very High LDL: greater than or equal to 190 mg/dL HDL Cholesterol 81 >40 mg/dL Desirable HDL: greater than 40 mg/dL Note: This HDL assay may give artificially low results in patients with liver disease. Vitamin D 25-OH Total Reviewed date:09/30/2024 05:05:52 PM Interpretation: Performing Lab:[address] [phone] Notes/Report: Vitamin D 25-OH Total 51.5 >30 ng/mL Health Based Reference Values* < 20 ng/mL Deficient 20-30 ng/mL Insufficient > 30 ng/mL Sufficient *Conchis IRIZARRY. N Engl J Med. 2007;357:266-280 Care must be taken in interpreting Vitamin D results from different laboratories and methodologies. Published data demonstrated that results from patients undergoing hemodialysis may show a negative bias when tested with various automated 25-OH vitamin D assays when compared to LC-MS/MS. When testing samples from patients whose predominant form of Vitamin D is Vitamin D2, such as patients receiving Vitamin D2 supplementation, results that are subtherapeutic should be confirmed with another method such as LC-MS/MS. UA ClnCatch+Micro w/rflx Cul t Reviewed date:09/30/2024 05:04:50 PM Interpretation: Performing Lab:[facility] [phone] Notes/Report: Urine, Clean Catch Color Urine Yellow Appearance Urine Hazy PH 5.5 5.0-9.0 Glucose Urine UA Negative Negative mg/dL Urine Blood Negative Negative Specific Sargeant - Urine >= 1.030 1.005-1.025 Urine Protein Trace Neg-Trace mg/dL Urine Ketones Negative Negative mg/dL Nitrite Urine Negative Negative Leukocyte Esterase Urine Trace Negative RBC Urine 0-2 0-2 /HPF WBC Urine 0-5 0-5 /HPF Squamous Epithelial Cell Urine 3-5 0-2 /HPF Bacteria Urine Trace None Seen Hyaline Casts Urine 0-2 0-2 /LPF Blood Urea Nitrogen (Not yet reviewed by provider) Interpretation: Performing Lab:[address] [phone] Notes/Report: Blood Urea Nitrogen 19 9-16 mg/dL Creatinine (Not yet reviewed by provider) Interpretation: Performing Lab:[address] [phone] Notes/Report: Creatinine 0.79 0.5-1.4 mg/dL Estimated Glomerular Filt Rate > 60 Chronic Kidney Disease: Estimated GFR < 60 mL/min/1.73m2 Severe Kidney Disease: Estimated GFR < 15 mL/min/1.73m2 Reason For Referral Reason recurrent vertigo Diagnosis 1 Recurrent vertigo (R 42) Referral Organization Denis Garcia MD Referring Provider First Name Denis Referring Provider Last Name Radha Referring Provider Speciality Internal M edicine Referred Provider [facility] Referred Provider Specialty Physical The rapist General Notes Baylee Hansen 11:01:54 AM EDT > patient will be making her own appt Referral Priority Routine Referral Appointment Date 06/26/2024 Medications Medication SIG (Take, Route, Frequency, Duration) Notes Start Date End Date Status Imitrex 50 MG 1 tablet at least 2 hours between doses as needed Orally Twice a day for 7 days 07/18/2022 Not-Taking Ibuprofen 600 MG 1 tablet with food o r milk as needed Orally Three times a day for 10 days 01/21/2021 Not-Taking Vitamin D 1000 UNIT 1 tablet Orally Once a day Active Tylenol 8 Hour Arthritis Pain 650 MG 2 tablets as needed Orally every 8 hrs Not-Taking Immunizations Vaccine Route Administration Date Status Comme nts Fluarix Quadrivalent IM Intramuscular 06/03/2018 Administe red Fluarix Quadrivalent IM Intramuscular 06/03/2019 Administe red Fluarix Quadrivalent IM Intramuscular 06/17/2020 Administe red Covid Vaccine Unknown 12/02/2020 Administered Pfizer Covid Vaccine Unknown 11/11/2020 Administered Pfizer Influenza High Dose IM Intramuscular 06/24/2021 Administer ed SARS-COV-2 Pfizer Unknown 10/08/2021 Administered Influenza High Dose IM Intramuscular 06/19/2022 Administer ed Influenza High Dose IM Intramuscular 06/21/2023 Administer ed Influenza High Dose IM Intramuscular 06/23/2024 Administer ed PPSV23 (Pnemovax) Unknown 08/20/2018 Refused Prevnar 13 Unknown 08/20/2018 Refused PPSV23 (Pnemovax) Unknown 02/21/2021 Refused Prevnar 13 Unknown 02/21/2021 Refused Social History Tobacco Use: Social History Observation Description Date Details (start date - stop date) Never Smoker NA - NA Tobacco Use/Smoking Question Answer Notes Patient is a nonsmoker Additional Findings: Tobacco Non-User Cu rrent non-smoker, currently using no form of tobacco Alcohol Screen Question Answer Notes Did you have a drink contain ing alcohol in the past year? Yes How often did you have a dri nk containing alcohol in the past year? Monthly or less (1 point) How many drinks did you have on a typical day when you were drinking in the past year? 1 or 2 drinks (0 point) How often did you have 6 or more drinks on one occasion in the past year? Never (0 point) Points 1 Interpretation Negative Problems Problem Type SNOMED Code ICD Code Onset Dates Problem Status W/U Status Risk Notes Problem Vitamin D deficiency (47784244) Vitamin D deficiency (E55.9) Active confirmed Problem 6403201 Migraine with au ra and without status migrainosus, not intractable (G43.109) Active confirmed Problem 084038370 Migraine without aura and without status migrainosus, not intractable (G43.009) Active confirmed Problem 050173804 Abnormal mammogr am of right breast (R92.8) Active confirmed Problem 62281381 Hypercholesterol emia (E78.00) Active confirmed Problem 780625957 Osteopenia of toño mbar spine (M85.88) Active confirmed Problem 132205554 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 Problem 218098432 Age-related inci pient cataract of both eyes (H25.093) Active confirmed Vital Signs Blood pressure diastolic 78 mm Hg 10/07/2024 reza ght is up 3 pounds since 06-26-24 Height 65.5 in 10/07/2024 weight is up 3 pounds since 06-26-24 Blood pressure systolic 162 mm Hg 10/07/2024 weig ht is up 3 pounds since 06-26-24 Weight 182 lbs 10/07/2024 weight is up 3 pounds since 06-26-24 BMI 29.82 kg/m2 10/07/2024 weight is up 3 pounds since 06-26-24 Encounters Encounter Location Date Provider Diagnosis Denis Garcia MD [address] [place] [address] Drive [address] [place] [id number] 06/23/2024 Denis Garcia Encounter for immuni zation Z23 Denis Garcia MD [address] [place] [id number] 09/30/2024 Denis Garcia Hypercholesterolemia E78.00 and Vitamin D deficiency E55.9 Denis Garcia MD [address] [place] [address] [address] [place] [id number] 01/08/2025 Denis Garcia Hypercholesterolemia E78.00 Denis Garcia MD [address] [place] [address] [address] [place] [id number] 06/26/2024 Denis Garcia Recurrent vertigo R4 2 Denis Garcia MD [address] [place] [address] [address] [place] [id number] 10/07/2024 Denis Garcia Hypercholesterolemia E78.00 ; Elevated BUN R79.9 ; Vitamin D deficiency E55.9 and Depression screening Z13.31 Assessments Encounter Date Diagnosis (ICD Code) Assessment Notes Treatment Notes Treatment Clinical Notes Section Notes 06/23/2024 Encounter for immunization (ICD-10 - Z23) 09/30/2024 Hypercholesterolemia (ICD-10 - E78.00) 09/30/2024 Vitamin D deficiency (ICD-10 - E55.9) 01/08/2025 Hypercholesterolemia (ICD-10 - E78.00) 06/26/2024 Recurrent vertigo (ICD-10 - R42) referral to PT at [facility]/ order given to tungmiguel angel 10/07/2024 Hypercholesterolemia (ICD-10 - E78.00) only slightly elevated and doesn't want meds, will continue to monitor, advised on diet 10/07/2024 Elevated BUN (ICD-10 - R79.9) pending future labs 10/07/2024 Vitamin D deficiency (ICD-10 - E55.9) stable, will continue current regiment 10/07/2024 Depression screening (ICD-10 - Z13.31) negative screen Plan Of Treatment Pending Test Test Name Order Date MRI BRAIN W&WO CONTRAST 07/18/2022 BONE DENSITY DEXA 02/21/2021 US LEG BILATERAL VENOUS DOPPLER 05/05/20 COLOGUARD 02/21/2021 MM screening mammo BI 12/08/2021 MM screening mammo BI 12/20/2020 COMPREHENSIVE METABOLIC PANEL 02/25/2021 CBC (INCLUDES DIFF/PLT) 02/25/2021 VITAMIN D, 25-HYDROXY, LC/MS/MS 02/26/20 URINALYSIS (UA) 02/25/2021 Blood Urea Nitrogen 01/08/2025 Creatinine 01/08/2025 Next Appt Details Provider Name:Denis Nugent ier, 10/02/2025 07:30:00 AM, [address] [place] [address], [address], [phone], Provider Name:Denis Nugent ier, 10/09/2025 09:30:00 AM, [address] [place] [address], [address], [phone], Insurance Providers Payer Name Payer Address Payer Phone Subscriber Number Group Number Insured Name Patient Relationship to Insured Coverage Start Date Coverage End Date MEDICARE NHIC [address] [place] [address] [id number] Asia Silva Self - patient is the insured [employer] [place] [place] [address] [place] [phone] [id number] Asia Silva Self - patient is the insured Medical (General) History Medical History History ICD Code tolteridine is detrol had cologard 2017
--- OUTSIDE RECORDS SUMMARY | 2025-01-08 11:44 | XMS_ITS ---
Author Organization Denis Garcia MD Address [address] [place] [phone] Care Team Providers Care Patient Financial Coordinator Name Role Phone Denis Garcia Primary Care Provider Allergies Allergen (clinical drug ingredient) Drug/Non Drug Allergy documented on EMR Reaction Allergy Type Onset Date Status PredniSONE face swelling palpitations Drug Allergy Active REASON FOR VISIT review labs, cologuard order - needs new order declines any further testing. Medications Medication SIG (Take, Route, Frequency, Duration) [...] as needed Orally every 8 hrs Not-Taking Social History Tobacco Use: Social History Observation [...] Never (0 point) Points 1 Interpretation Negative Vital Signs Blood pressure systolic 162 mm Hg 10/07/19 25 Blood pressure diastolic 78 mm Hg 025 Height 65.5 in 10/07/2024 Weight 182 lbs 10/07/2024 BMI 29.82 kg/m2 10/07/2024 weight is up 3 pounds since 06-26-24 Encounters Encounter Location Date Provider Diagnosis Denis Garcia MD [address] [place] [address] Drive [address] [place], [place] [phone] 10/07/2024 Denis Garcia Hypercholesterolemia E78.00 ; Elevated BUN R79.9 ; Vitamin D deficiency E55.9 and Depression screening Z13.31 Assessments Encounter Date Diagnosis (ICD Code) Assessment Notes Treatment Notes Treatment Clinical Notes Section Notes 10/07/2024 Hypercholesterolemia (ICD-10 - E78.00) only slightly elevated and doesn't want meds, will continue to monitor, advised on diet 10/07/2024 Elevated BUN (ICD-10 - R79.9) pending future labs 10/07/2024 Vitamin D deficiency (ICD-10 - E55.9) stable, will continue current regiment 10/07/2024 Depression screening (ICD-10 - Z13.31) negative screen Plan Of Treatment Medication Medication Name Sig Start Date Stop Date Notes Vitamin D 1000 UNIT 1 tablet Orally Once a day Treatment Notes Assessment Notes Hypercholesterolemia only slightly eleva maribel and doesn't want meds, will continue to monitor, advised on diet Elevated BUN pending future labs Vitamin D deficiency stable, will contin ue current regiment Depression screening negative screen Pending Test Test Name Order Date Blood Urea Nitrogen 10/07/2024 Creatinine 10/07/2024 Next Appt Details Follow Up: 1 Year, Reason: Provider Name:Denis river, 10/02/2025 07:30:00 AM, [address] [place] [address], [address], [place], [place], [phone], Provider Name:Denis river, 10/09/2025 09:30:00 AM, [address] [place] [address], [address], [place], [place], [phone], Progress Notes * Asia SILVADOB: (79 yo F)Acc No.[id number]:10/07/2024 Patient:?Kenya SILVA Provider:?Denis Garcia MD :1945???Age:79 Y???Sex:Female D ate:10/07/2024 Address:[address] [place], [place] [phone] Subjective: * Chief Complaints: * ???Review labsCologuard orde r - needs new order declines any further testing. * HPI: ???Depression Screening:?PHQ-9?Little interest or pleasure in doing things?Not at all,?Feeling down, depressed, or hopeless?Not at all,?Trouble falling or staying asleep, or sleeping too much?Not at all,?Feeling tired or having little energy?Not at all,?Poor appetite or overeating?Not at all,?Feeling bad about yourself or that you are a failure, or have let yourself or your family down?Not at all,?Trouble concentrating on things, such as reading the newspaper or watching television?Not at all,?Moving or speaking so slowly that other people could have noticed; or the opposite, being so fidgety or restless that you have been moving around a lot more than usual?Not at all,?Thoughts that you would be better off or of hurting yourself in some way?Not at all,?Total Score?0.?Interpretation and Intervention?Depression Screening Findings?Negative,?Follow-Up for Depression?: review of PHQ-9 found negative result, no follow-up needed.?Communication Needs:?Communication Needs?Does the patient have a hearing impairment?No,?Does the patient have a vision impairment??No,?Does the patient have a cognition impairment??No.?Fall Risk:?History?Have you had any falls with injury in the past year??No,?Have you had two or more falls in the past year??No.?SDOH Questions:?SDOH Questions?In the past year have you been worried about losing housing??No,?In the past year have you or any family members you live with been unable to get any of the following when it was really needed? Check all that apply:?None.?Symptom(s):? patient is a 79 yo female here for visit with review of or recentlabs and follow up of chronic issues. * ROS:?General/Constitutional:?Patient denies?fatigue , headache.?Change in appetite?denies.?Chills?denies.?Fever?denies.?Ophthalmologic:?Blurred vision?denies.?Discharge?denies.?Pain?denies.?ENT:?Patient denies?decreased sense of smell , any loss of taste , sore throat.?Decreased hearing?denies.?Sore throat?denies.?Swollen glands?denies.?Endocrine:?Cold intolerance?denies.?Excessive thirst?denies.?Heat intolerance?denies.?Weight loss?denies.?Respiratory:?Cough?denies.?Shortness of breath at rest?denies.?Shortness of breath with exertion?denies.?Wheezing?denies.?Cardiovascular:?Chest pain at rest?denies.?Chest pain with exertion?denies.?Irregular heartbeat?denies.?Shortness of breath?denies.?Gastrointestinal:?Abdominal pain?denies.?Change in bowel habits?denies.?Diarrhea?denies.?Nausea?denies.?Rectal bleeding?denies.?Vomiting?denies .?Genitourinary:?Blood in urine?denies.?Difficulty urinating?denies.?Frequent urination?denies.?Urinary incontinence?Denies.?Musculoskeletal:?Patient denies?muscle aches.?Painful joints?denies.?Weakness?denies.?Peripheral Vascular:?Patient denies?red and blue toes.?Skin:?Dry skin?denies.?Itching?denies.?Denies?Mole(s),? changes in moles, new moles or any lesions of concern.?Denies?Photosensitivity.?Rash?denies.?Neurologic:?Dizziness?denies.?Fainting?denies.?Headache?denies.? * Medical History:? * Surgical History:? * Hospitalization/Major Diagno stic Procedure:? * Family History:?Father: dece ased 47 yrs.?Mother: 50 yrs, diagnosed with Cancer.?1 daughter(s) . .? Father- Blood clot Mother Ovarian Cancer 1 brother-52 Stomach cancer 1 brother 52 stomach cancer, No pertinent family medical history, Denies mental health/substance abuse family history, Denies mental health/substance abuse family history. * Social History:?Tobacco Use:?Tobacco Use/Smoking?Patient is a?nonsmoker,?Additional Findings: Tobacco Non-User?Current non-smoker, currently using no form of tobacco.?Drugs/Alcohol:?Alcohol Screen?Did you have a drink containing alcohol in the past year??Yes,?How often did you have a drink containing alcohol in the past year??Monthly or less (1 point),?How many drinks did you have on a typical day when you were drinking in the past year??1 or 2 drinks (0 point),?How often did you have 6 or more drinks on one occasion in the past year??Never (0 point),?Points?1,?Interpretation?Negative.?Miscellaneous:?Caffeine: yes, frequency:. Children: yes. Exercise: yes, walks daily 2.5 miles. Home smoke detector use: yes. Living with: spouse. Marital status: . Occupation: weeks/months/years, retired. Pets: none. Travel outside of the [place]: no. * Medications:?TakingVitamin D 1000 UNIT Tablet 1 tablet Orally Once a day Taking Vitamin D 1000 UNIT Tablet 1 tablet Orally Once a day Not-Taking/PRNImitrex 50 MG Tablet 1 tablet at least 2 hours between doses as needed Orally Twice a day Tylenol 8 Hour Arthritis Pain 650 MG Tablet Extended Release 2 tablets as needed Orally every 8 hrs Ibuprofen 600 MG Tablet 1 tablet with food or milk as needed Orally Three times a day Medication List reviewed and reconciled with the patientNot-Taking/PRN Imitrex 50 MG Tablet 1 tablet at least 2 hours between doses as needed Orally Twice a day Not-Taking/PRN Tylenol 8 Hour Arthritis Pain 650 MG Tablet Extended Release 2 tablets as needed Orally every 8 hrs Not-Taking/PRN Ibuprofen 600 MG Tablet 1 tablet with food or milk as needed Orally Three times a day Medication List reviewed and reconciled with the patient * Allergies:?PredniSONE: face swelling palpitationsyes[Allergies Verified] Objective: * Vitals:?Ht: 65.5, Wt: 182, B NM:29.82, BP:162/78, Repeat BP:120/78, Wt-k.55. weight is up 3 pounds since 06-26-24. * ???Past Orders: ???Lab:Lipid Panel (Order Da 09/30/2024) (Collection Date & Time - 09/30/2024 07:15 AM) ? Value Reference Range ?Triglycerides 80 <150 - mg/dL ?Cholesterol 255 H <200 - m g/dL ?LDL Cholesterol Calculated 158 H <100 - mg/dL ?HDL Cholesterol 81 >40 - mg/dL ???Lab:Vitamin D 25-OH Total (Order Date - 09/30/2024) (Collection Date & Time - 09/30/2024 07:15 AM) ? Value Reference Range ?Vitamin D 25-OH Total 51.5 >30 - ng/mL ???Lab:UA ClnCatch+Micro w/r flx Cult (Order 09/30/2024) (Collection & Time - 09/30/2024 07:15 AM) ? Value Reference Range ?Color Urine Yellow - ?Appearance Urine Hazy - ?PH 5.5 5.0-9.0 - ?Glucose Urine UA Negative Neg ative - mg/dL ?Urine Blood Negative Negative - ?Specific Soldier - Urine >= 1.030 H 1.005-1.025 - ?Urine Protein Trace Neg-Tr johnnie - mg/dL ?Urine Ketones Negative Negati ve - mg/dL ?Nitrite Urine Negative Negati ve - ?Leukocyte Esterase Urine Trace A Negative - ?RBC Urine 0-2 0-2 - /HPF ?WBC Urine 0-5 0-5 - /HPF ?Squamous Epithelial Cell Urine 3-5 0-2 - /HPF ?Bacteria Urine Trace None Seen - ?Hyaline Casts Urine 0-2 0-2 - /LPF ???Lab:Complete Blood Count Auto Diff (Order Date - 09/30/2024) (Collection Date & Time - 09/30/2024 07:15 AM) ? Value Reference Range ?White Blood Count 4.7 L 4. 8-10.8 - X10*3/uL ?Red Blood Count 4.62 4.20 -5.50 - X10*6/uL ?Hemoglobin 13.7 12.0-16.0 - g/dl ?Hematocrit 41.4 37.0-47.0 - % ?Mean Corpuscular Volume 89.6 80.0-98.0 - fL ?Mean Corpuscular Hemoglobin 29.7 27.0-33.0 - pg ?Mean Corpuscular HGB Conc 33.1 31.0-35.0 - g/dl ?Red Cell Distribution Width 12.6 11.0-16.0 - % ?Platelet Count 253 160-4 00 - X10*3/uL ?Mean Platelet Volume 9.1 L 9.4-12.3 - fL ?Neutrophils Percent Auto 49.3 45-73 - % ?Imm Gran Pct Auto 0.2 0. 0-0.4 - % ?Lymphocytes Percent Auto 32.7 20-40 - % ?Monocytes Percent Auto 10.8 2-11 - % ?Eosinophils Percent Auto 5.9 H 0-4 - % ?Basophils Percent Auto 1.1 0-2 - % ?NRBC Pct Auto 0.0 0.0-0. 2 - /100WBC ?Neutrophils Absolute Auto 2.3 2.0-8.3 - x10*3/uL ?Imm Gran Abs Auto 0.01 0. 00-0.03 - X10*3/uL ?Lymphocytes Absolute Auto 1.6 1.2-4.9 - X10*3/uL ?Monocytes Absolute Auto 0.5 0.1-1.2 - X10*3/uL ?Eosinophils Absolute Auto 0.3 0.0-0.4 - X10*3/uL ?Basophils Absolute Auto 0.1 0.0-0.2 - X10*3/uL ?NRBC Abs Auto 0.000 0.0-0. 012 - X10*3/uL ???Lab:Comprehensive [place]. P enrique Fast (Order Date - 09/30/2024) (Collection Date & Time - 09/30/2024 07:15 AM) ? Value Reference Range ?Sodium 143 135-145 - mmo l/L ?Bilirubin Total 0.5 0.0- 1.0 - mg/dL ?Aspartate Amino Transferase 21 5-31 - U/L ?Alanine Aminotransferase 18 0-31 - U/L ?Total Protein 6.5 6.5-8. 0 - g/dL ?Albumin Level 4.1 3.5-5. 0 - g/dL ?Alkaline Phosphatase 67 39-117 - U/L ?Potassium 4.2 3.3-5.1 - mmol/L ?Chloride 108 96-108 - mm ol/L ?Carbon Dioxide 27 22-29 - mmol/L ?Anion Gap 12 12-20 - ?Blood Urea Nitrogen 25 H 9-16 - mg/dL ?Creatinine 0.81 0.5-1.4 - mg/dL ?Estimated Glomerular Filt Rate > 60 - ?Glucose Fasting 101 H 60-9 9 - mg/dL ?Calcium 8.9 8.4-10.2 - m g/dL * Examination: ???General Examination: ?GENERAL APPEARANCE:?well developed, well nourished, in no acute distress.?HEAD:?normocephalic, atraumatic.?EYES:?pupils equal, round, reactive to light and accommodation, sclera non-icteric.?EARS:?normal.?ORAL CAVITY:?mucosa moist.?THROAT:?clear.?NECK/THYROID:?neck supple, full range of motion, no cervical lymphadenopathy, no bruits.?SKIN:?warm and dry, no suspicious lesions.?HEART:?regular rate and rhythm, S1, S2 normal, no murmurs.?LUNGS:?clear to auscultation bilaterally.?BREASTS:?declined.?ABDOMEN:?soft, nontender, nondistended, bowel sounds present, normal, no organomegaly , no masses palpable.?RECTAL EXAM:?declined.?FEMALE GENITOURINARY:?declined.?EXTREMITIES:?no clubbing, cyanosis, or edema.?NEUROLOGIC:?nonfocal, motor strength normal upper and lower extremities, sensory exam intact.? Assessment: * Assessment: 1.?Hypercholesterolemia - E7 8.00 (Primary)???2.?Elevated BUN - R79.9???3.?Vitamin D deficiency - E55.9???4.?Depression screening - Z13.31??? Plan: * Treatment: 2.?Elevated BUN? Notes: pending future labs?? 3.?Vitamin D deficiency? Continue Vitamin D Tablet, 1000 UNIT, 1 tablet, Orally, Once a day.?? Notes: stable, will continue current regiment?? 4.?Depression screening? Notes: negative screen?? * Procedure Codes:? * Follow Up:?1 Year * * Sign off status: Completed true * Provider:?Denis Garcia MD Date:?0 10/07/2024 Generated for Joe montano/Adrien/eTransmitting on:?01/08/2025 11:43 AM EDT History and Physical Notes * HPI (History of Present Illness) Category Sub-Category Detail Notes Category Not es Symptom(s) patient is a 79 yo female here for visit with review of or recentlabs and follow up of chronic issues. Depression Screening PHQ-9 Little inte rest or pleasure in doing things: Not at all Feeling down, depressed, or hopeless: No t at all Trouble falling or staying asleep, or sl eeping too much: Not at all Feeling tired or having little energy: N ot at all Poor appetite or overeating: Not at all Feeling bad about yourself o r that you are a failure, or have let yourself or your family down: Not at all Trouble concentrating on thi ngs, such as reading the newspaper or watching television: Not at all Moving or speaking so slowly that other people could have noticed; or the opposite, being so fidgety or restless that you have been moving around a lot more than usual: Not at all Thoughts that you would be b alber off or of hurting yourself in some way: Not at all Total Score: 0 Interpretation and Intervention Depression Ana Cristina lynch Findings: Negative Follow-Up for Depression: : review of PH Q-9 found negative result, no follow-up needed SDOH Questions SDOH Questions In the past year have you been worried about losing housing?: No In the past year have you or any family members you live with been unable to get any of the following when it was really needed? Check all that apply:: None Fall Risk History Have you had any falls with injury i n the past year?: No Have you had two or more falls in the st year?: No Communication Needs Communication Needs Does the patient have a hearing impairment: No Does the patient have a vision impairmen t?: No Does the patient have a cognition impair ment?: No Examination Category Sub-Category Detail Notes Category Not es General Examination GENERAL APPEARANCE: well dev eloped, well nourished, in no acute distress HEAD: normocephalic, atrau matic EYES: pupils equal, round, reactive to light and accommodation, sclera non-icteric EARS: normal THROAT: clear NECK/THYROID: neck supple, full ra nge of motion, no cervical lymphadenopathy, no bruits HEART: regular rate and rhy thm, S1, S2 normal, no murmurs LUNGS: clear to auscultatio n bilaterally ABDOMEN: soft, nontender, non distended, bowel sounds present, normal, no organomegaly , no masses palpable NEUROLOGIC: nonfocal, motor stre ngth normal upper and lower extremities, sensory exam intact SKIN: warm and dry, no fabian picious lesions EXTREMITIES: no clubbing, cyanosi s, or edema BREASTS: declined RECTAL EXAM: declined FEMALE GENITOURINARY: declined ORAL CAVITY: mucosa moist
--- OUTSIDE RECORDS SUMMARY | 2025-01-08 11:44 | XMS_ITS ---
Author Organization Denis Garcia MD Address [address] [place], [place] [id number] Care Team Providers Care Registered Pharmacy Technician Name Role Phone Denis Garcia Primary Care Provider Results Component Value Reference Range Notes Complete Blood Count Auto Di ff Reviewed date:09/30/2024 05:15:25 PM Interpretation: Performing Lab:[facility], [address] [place] [phone] Notes/Report: White Blood Count 4.7 4.8-10.8 X10*3/uL [...] NRBC Abs Auto 0.000 0.0-0.012 X10*3/uL Comprehensive [place]. Panel Fa Reviewed date:09/30/2024 05:18:52 PM Interpretation: Performing Lab:[facility], [address] [place] [phone] Notes/Report: Sodium 143 135-145 mmol/L Potassium 4.2 [...] Panel Reviewed date:09/30/2024 05:05:01 PM Interpretation: Performing Lab:[facility], [address] [place] [phone] Notes/Report: Triglycerides 80 <150 mg/dL Desirable Triglyceride: [...] Total Reviewed date:09/30/2024 05:05:52 PM Interpretation: Performing Lab:[facility], [address] [place] [phone] Notes/Report: Vitamin D 25-OH Total 51.5 >30 [...] t Reviewed date:09/30/2024 05:04:50 PM Interpretation: Performing Lab:[facility], [address] [place] [phone] Notes/Report: Urine, Clean Catch Color Urine Yellow Appearance Urine Hazy PH 5.5 5.0-9.0 Glucose Urine UA Negative Negative mg/dL Urine Blood Negative Negative Specific [place] - Urine >= 1.030 1.005-1.025 Urine Protein Trace Neg-Trace mg/dL Urine Ketones Negative Negative mg/dL Nitrite Urine Negative Negative Leukocyte Esterase Urine Trace Negative RBC Urine 0-2 0-2 /HPF WBC Urine 0-5 0-5 /HPF Squamous Epithelial Cell Urine 3-5 0-2 /HPF Bacteria Urine Trace None Seen Hyaline Casts Urine 0-2 0-2 /LPF REASON FOR VISIT FASTING LABS Encounters Encounter Location Date Provider Diagnosis Denis Garcia MD [address] [place] [address] [place] [phone] 09/30/2024 Denis Garcia Hypercholesterolemia E78.00 and Vitamin D deficiency E55.9 Assessments Encounter Date Diagnosis (ICD Code) Assessment Notes Treatment Notes Treatment Clinical Notes Section Notes 09/30/2024 Hypercholesterolemia (ICD-10 - E78.00) 09/30/2024 Vitamin D deficiency (ICD-10 - E55.9) Plan Of Treatment Next Appt Details Provider Name:Denis river, 10/02/2025 07:30:00 AM, [address] [place] [address], [address] [place] [address], [phone], Provider Name:Denis river, 10/09/2025 09:30:00 AM, [address] [place] [address], Suite [facility], [place], [place], [phone], Progress Notes * Asia SILVADOB: (79 yo F)Acc No.[id number]:09/30/2024 Progress Note Patient:?Kenya SILVA Provider:?Denis Garcia MD :1945???Age:79 Y???Sex:Female D ate:09/30/2024 Address:[address] [place], [place] [phone] Subjective: * Chief Complaints: * ???1. FASTING LABS. * Medical History:? Objective: * Vitals:? Assessment: * Assessment: 1.?Hypercholesterolemia - E7 8.00 (Primary)???2.?Vitamin D deficiency - E55.9??? Plan: * Treatment: 2.?Vitamin D deficiency?LAB: Complete Blood Count Auto Diff (Collection Date & Time - 09/30/2024 07:15 AM) ?LAB: Comprehensive [place]. Panel Fast (Collection Date & Time - 09/30/2024 07:15 AM) ?LAB: Lipid Panel (Collection Date & Time - 09/30/2024 07:15 AM) ?LAB: Vitamin D 25-OH Total (Collection Date & Time - 09/30/2024 07:15 AM) ?LAB: UA ClnCatch+Micro w/rflx Cult (Collection Date & Time - 09/30/2024 07:15 AM) * Procedure Codes:?32099 VENIP UNCT, ROUTINE* * * The named appointment provid er may or may not be the originator of this progress note, and it is not deemed complete until electronically signed by the appointment provider. Sign off status: Pending * Provider:?Denis Garcia MD Date:?0 09/30/2024 Generated for Joe montano/Adrien/Anaitting on:?01/08/2025 11:44 AM EDT
--- OUTSIDE RECORDS SUMMARY | 2025-01-08 11:44 | XMS_ITS | Patient Health Record ---
Author Organization [facility] Address [address] [place] [address] Care Team Providers Care Power Barker Name Role Phone Maria Isabel Erickson Unavailable [phone] Reason For Referral No Information Medications Medication SIG (Take, Route, Frequency, Duration) Notes Start Date End Date Status Detrol 2MG 1 ORAL twice daily f or -3 [facility] 06/09/2014 Active Triamcinolone Acetonide 0.1% 1 EXTERNAL twice daily for -3 [facility] 06/09/2014 Active Problems Problem Type SNOMED Code ICD Code Onset Dates Problem Status W/U Status Risk Notes Problem Hyperlipidemia (57849156) Other and unspecified hyperlipidemia (272.4) Active confirmed Major Problem 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) Disorder of bone and cartilage, unspecified (733.90) Active confirmed Diag Problem Gynecological examination normal (602151581180625) Routine gynecological examination (V72.31) Active confirmed Diag Plan Of Treatment No Information Insurance Providers Payer Name Payer Address Payer Phone Subscriber Number Group Number Insured Name Patient Relationship to Insured Coverage Start Date Coverage End Date MEDICARE [address] [place] [id number] MART GARCIA Self - patient is the insured [employer] [address] [address] [place] [id number] MART GARCIA Self - patient is the insured
--- OUTSIDE RECORDS SUMMARY | 2025-01-08 11:45 | XMS_ITS | Clinical Summary ---
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 Name Role Phone Denis Resendiz MD Primary Care Provider [phone] Encounters Date Type Department Care Team Description 01/01/2025 7:57 AM EDT - 01/01/2025 11:59 PM EDT [facility] [address] [address] Encounter for screening mammogram for breast cancer Discharge Disposition: Home or Self Care from Last 3 Months Surgical History Surgery Date Site/Laterality Comments STEREOTACTIC CORE BIOPSY Left Social History Tobacco Use Types Packs/Day Years Used Date Smoking Tobacco: Never Assessed Comments No Sex and Gender Information Value Date Recorded Sex Assigned at Not on file Legal Sex Female 8:16 AM EST Gender Identity Not on file Sexual Orientation Not on file Obstetrics History Para Term AB IAB SAB Ectopic Multiple Livin g Live Births 1 Last Filed Vital Signs Vital Sign Reading Time Taken Comments Blood Pressure - - Pulse - - Temperature - - Respiratory Rate - - Oxygen Saturation - - Inhaled Oxygen Concentration - - Weight 79.4 kg (175 lb) 01/01/2025 8:15 AM EDT Height 167.6 cm (5' 6 ) 01/01/2025 8:15 AM EDT Body Mass Index 28.25 01/01/2025 8:15 AM EDT Plan of Treatment Health Maintenance Due Date Last Done Comments DTaP,Tdap,and Td Vaccines (1 - Tdap) 1966 Pneumococcal Vaccine: 50+ Years (1 of 1 - PCV) 1997 Zoster Vaccines (2 of 3) 11/13/2014 09/18/2014 RSV Immunization Adult Patients (1 - 1-dose 75+ series) 2022 Cholesterol Screening (Lipid Panel) 08/20/2022 Colorectal Cancer Screening: Stool Based Tests (FOBT/FIT) 08/20/2022 Depression Screening 08/20/2022 Falls Risk Assessment 08/20/2022 Hepatitis C Screening 08/20/2022 Medicare Annual Wellness Visit 08/20/2022 Social Influencers of Health Screening 08/20/2022 COVID-19 Vaccine ( season) 2024 10/08/2021, 12/02/2020, 11/04/2020, Additional history exists Osteoporosis Screening (Bone Density Screening) 03/24/2031 03/24/2021, 08/19/2018 Influenza Vaccine Completed 06/23/2024, , 06/19/2022, Additional history exists HIB Vaccines Aged Out No longer eligi ble based on patient's age to complete this topic HPV Vaccines Aged Out No longer eligi ble based on patient's age to complete this topic Hepatitis A Vaccines Aged Out No long er eligible based on patient's age to complete this topic Hepatitis B Vaccines Aged Out No long er eligible based on patient's age to complete this topic IPV Vaccines Aged Out No longer eligi ble based on patient's age to complete this topic MMR Vaccines Aged Out No longer eligi ble based on patient's age to complete this topic Meningococcal ACWY Vaccine Aged Out N o longer eligible based on patient's age to complete this topic Meningococcal B Vaccine Aged Out No l onger eligible based on patient's age to complete this topic RSV Immunization Patients Under 20 months Aged Out No longer eligible based on patient's age to complete this topic Varicella Vaccines Aged Out No longer eligible based on patient's age to complete this topic Procedures Procedure Name Priority Date/Time Associated Diagnosis Comments MG MAMMO DIGITAL SCREENING W ARLETH BILAT Routine 01/01/2025 8:16 AM EDT Encounter for screening mammogram for breast cancer RAJI DEXA AXIAL SKELETON Routine 03/24/2021 11:04 AM EDT Other specified disorders of bone density and structure, other site from Last 3 Months or Most Recently Relevant to Health Maintenance Results * MG Mammo Digital Screening w Arleth bilat (01/01/2025 8:16 AM EDT) Anatomical Region Laterality Modality Breast Bilateral Mammography 01/01/2025 8:46 AM EDT Impressions 01/01/2025 8:53 AM EDT No mammographic evidence of malignancy. A negative mammogram in the presence of a clinically suspicious palpable abnormality does not preclude the possibility of malignancy or alter the indications for biopsy. PQRI CPT II 3342F Code 06611, 88332 PQRI 225 CPT II 7025F TISSUE DENSITY: There are scattered areas of fibroglandular density. (BI-RADS category B) IMPRESSION: Benign. BI-RADS CATEGORY: 2 - BENIGN RECOMMENDATION: Screening bilateral mammogram is recommended in 1 year. Mammo Location: [facility], [address] [place] [address] -------- FINAL REPORT -------- Dictated By: William Dee Dictated Date: 01/01/2025 08:46 ET Assigned Physician: William Dee Reviewed and Electronically Signed By: William Dee Signed Date: 01/01/2025 08:53 ET Workstation ID: [id number] Transcribed By: Self Edit Transcribed Date: 01/01/2025 08:46 ET Narrative 01/01/2025 8:53 AM EDT CLINICAL: The patient is a 79 years Female presenting for routine screening mammography. ??The patient has undergone a previous left breast biopsy, pathology benign. ??The patient has a family history of breast cancer involving her daughter at age 46. COMPARISON: Most recently 12/31/2023 and most remotely 08/18/2017. ?? TECHNIQUE: Full-field digital mammography of the breasts bilaterally consisting of tomosynthesis in MLO and CC projection is performed in the [employer] 2000-D unit. ??Computer aided detection utilizing the iCAD system was utilized. FINDINGS: The breasts are again seen to be composed of a combination of fatty and fibroglandular elements. ??Bilateral benign coarse calcifications are without suspicious interval change. ??A tissue marker from the previous benign biopsy is again seen in the upper-outer quadrant of the left breast. ??There is no suspicious cluster of microcalcifications, mass, or area of architectural distortion. There is no skin thickening or nipple retraction. Procedure Note William Dee MD - 01/01/2025 CLINICAL: The patient is a 79 years Female presenting for routinescreening mammography. The patient has undergone a previous left breastbiopsy, pathology benign. The patient has a family history of breastcancer involving her daughter at age 46. COMPARISON: Most recently 12/31/2023 and most remotely 08/18/2017. TECHNIQUE: Full-field digital mammography of the breasts bilaterallyconsisting of tomosynthesis in MLO and CC projection is performed in the[employer] 2000-D unit. Computer aided detection utilizing the Tr[employer]ystem was utilized. FINDINGS: The breasts are again seen to be composed of a combination offatty and fibroglandular elements. Bilateral benign coarse calcificationsare without suspicious interval change. A tissue marker from the previousbenign biopsy is again seen in the upper-outer quadrant of the leftbreast. There is no suspicious cluster of microcalcifications, mass, orarea of architectural distortion. There is no skin thickening or nippleretraction. IMPRESSION: No mammographic evidence of malignancy. A negative mammogram in the presence of a clinically suspicious palpableabnormality does not preclude the possibility of malignancy or alter theindications for biopsy. PQRI CPT II 3342F Code 32311, 40896 PQRI 225 CPT II 7025F TISSUE DENSITY: There are scattered areas of fibroglandular density.(BI-RADS category B) IMPRESSION: Benign. BI-RADS CATEGORY: 2 - BENIGN RECOMMENDATION: Screening bilateral mammogram is recommended in 1 year. Mammo Location: [facility], [facility], [address] [place] [id number] -------- FINAL REPORT -------- Dictated By: William Dee Dictated Date: 01/01/2025 08:46 ET Assigned Physician: William Dee Reviewed and Electronically Signed By: William Dee Signed Date: 01/01/2025 08:53 ET Workstation ID: [id number] Transcribed By: Self Edit Transcribed Date: 01/01/2025 08:46 ET us Self Referral Sppl IMG BI PROCEDURES Final Resul t * RAJI DEXA AXIAL SKELETON (03/24/2021 11:04 AM EDT) Anatomical Region Laterality Modality Mammography 03/24/2021 10:0 9 AM EDT Narrative 03/24/2021 11:04 AM EDT [facility] Diagnostic Imaging Department [address] [place] [address] Patient: ??ASIA SILVA ?/Age/Sex: 1945 - 76 - F Unit#: ??[id number] ? Location/Status: ??SPDIMAM/REG CLI ? Mnemonic/Ordering Site: ??MAMDEXAAX/SPMAM Ordering Physician: ??DENIS RESENDIZ MD [facility] Dexa Axial Skeleton - 03/24/211040 HISTORY: ??The patient is a 76-year-old postmenopausal female with clinical concern for metabolic bone disease. FINDINGS: ??Dual energy x-ray absorptiometry of the lumbar spine and femurs is performed. The mean bone mineral density at L1-L4 is 1.032 gm/cm2 which is 87% of that of young normals and 99% of that of age matched controls. This yields a T-score of -1.2 and a Z-score of -0.1 which is diagnostic of osteopenia. The mean bone mineral density of the femurs bilaterally is 0.992 gm/cm2 which is 98% of that of young normals and 117% of that of age matched controls. ??This yields a T-score of -0.1 and a Z-score of 1.2 and there is therefore no evidence of osteoporosis or osteopenia here. ??However, the T-score of the right femoral neck is -1.4 and that of the left femoral neck is -1.3 which is diagnostic of osteopenia. IMPRESSION: 1. Osteopenia. ??There has been a decrease of 1.6% in bone mineral density in the lumbar spine since the prior examination of 08/19/2018. ??There has been a decrease of 3.0% in bone mineral density in the right femur and a decrease of 3.7% in bone mineral density in the left femur. 2. FRAX analysis yields a 10-year probability of major osteoporotic fracture of 10.4% and a 10-year probability of hip fracture of 1.8%. Code 36561 Dictating Physician: ??WILLIAM DEE MD Electronically Signed by: ??WILLIAM DEE MD Dic Date/Time: ??03/24/21 1103 Sign date/Time: ??03/24/21 1104 Procedure Note William Dee MD - 09/13/2022 [facility] Diagnostic Imaging Department [address] [place] [address] Patient: SON BELTRÁNASIA SULLIVAN/Age/Sex: 1945 - 76 - F Unit#: [id number] Location/Status: [facility]/REG CLI [facility] Ordering Physician: DENIS RESENDIZ MD Raji Dexa Axial Skeleton - 03/24/21 - 104 HISTORY: The patient is a 76-year-old postmenopausal female withclinical concern for metabolic bone disease. FINDINGS: Dual energy x-ray absorptiometry of the lumbar spine and femursis performed. The mean bone mineral density at L1-L4 is 1.032 gm/cm2 which is87% of that of young normals and 99% of that of age matched controls. Thisyields a T-score of -1.2 and a Z-score of -0.1 which is diagnostic of osteopenia. The mean bone mineral density of the femurs bilaterally is 0.992 gm/ln9tcojt is 98% of that of young normals and 117% of that of age matched controls.This yields a T-score of -0.1 and a Z-score of 1.2 and there is therefore noevidence of osteoporosis or osteopenia here. However, the T-score of the rightfemoral neck is -1.4 and that of the left femoral neck is -1.3 which is diagnosticof osteopenia. IMPRESSION: 1. Osteopenia. There has been a decrease of 1.6% in bone mineral densityin the lumbar spine since the prior examination of 08/19/2018. There has jacqui decrease of 3.0% in bone mineral density in the right femur and a decreaseof 3.7% in bone mineral density in the left femur. 2. FRAX analysis yields a 10-year probability of major osteoporoticfracture of 10.4% and a 10-year probability of hip fracture of 1.8%. Code 28204 Dictating Physician: WILLIAM DEE MD Electronically Signed by: WILLIAM DEE MD Dic Date/Time: 03/24/21 1103 Sign date/Time: 03/24/21 1104 Denis Resendiz MD IM BI PROCEDURES Final Res ult from Last 3 Months or Most Recently Relevant to Health Maintenance Insurance 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
== END 2025-01-08 10:13 | disposition home or self-care (01) ==
LOC: HO.LNP 10:12
PROVIDERS: Visit Provider Internal Medicine
DX: E78.00 Pure hypercholesterolemia, unspecified (principal)
CPT/HCPCS: 82565; 84520